=== PATIENT | male | born 1935 | race Caucasian/White ===

== ENCOUNTER 2016-08-26 14:54 | Inpatient (IN) | payer OTHER ==
[2016-08-26 16:56] LABS: HEMOGLOBIN 12.5 gm/dl (14.0-17.5); RED BLOOD COUNT 3.93 M/UL (4.20-5.50); WHITE BLOOD COUNT 10.3 K/UL (4.5-11.0)
[2016-08-26] MEDS ORDERED: SEROQUEL25 MG PO (23:59)
[2016-08-27] MEDS ORDERED: NAMENDA XR28 MG PO
[2016-08-27] MEDS ORDERED: KLONOPIN TAB 00.5 MG PO
[2016-08-30 04:29] LABS: HEMOGLOBIN 11.8 gm/dl (14.0-17.5); RED BLOOD COUNT 3.68 M/UL (4.20-5.50); WHITE BLOOD COUNT 10.4 K/UL (4.5-11.0)
[2016-08-31 07:21] LABS: HEMOGLOBIN 11.4 gm/dl (14.0-17.5); RED BLOOD COUNT 3.62 M/UL (4.20-5.50); WHITE BLOOD COUNT 11.5 K/UL (4.5-11.0)
[2016-09-01 04:42] LABS: HEMOGLOBIN 11.6 gm/dl (14.0-17.5); RED BLOOD COUNT 3.67 M/UL (4.20-5.50); WHITE BLOOD COUNT 12.9 K/UL (4.5-11.0)
[2016-09-02 04:58] LABS: HEMOGLOBIN 11.3 gm/dl (14.0-17.5); RED BLOOD COUNT 3.62 M/UL (4.20-5.50); WHITE BLOOD COUNT 13.2 K/UL (4.5-11.0)
[2016-09-04 07:15] LABS: BUN/CREATININE RATIO 10 (0-10)
[2016-09-05 06:06] LABS: HEMOGLOBIN 9.5 gm/dl (14.0-17.5); RED BLOOD COUNT 3.05 M/UL (4.20-5.50); WHITE BLOOD COUNT 14.7 K/UL (4.5-11.0)
[2016-09-05 06:34] LABS: BUN/CREATININE RATIO 9 (0-10)
[2016-09-06 05:07] LABS: HEMOGLOBIN 9.6 gm/dl (14.0-17.5); RED BLOOD COUNT 3.05 M/UL (4.20-5.50); WHITE BLOOD COUNT 14.4 K/UL (4.5-11.0)
[2016-09-06 05:22] LABS: BUN/CREATININE RATIO 9 (0-10)
[2016-09-07 04:52] LABS: HEMOGLOBIN 9.8 gm/dl (14.0-17.5); RED BLOOD COUNT 3.15 M/UL (4.20-5.50)
[2016-09-07 05:10] LABS: BUN/CREATININE RATIO 11 (0-10)
[2016-09-09] MEDS ORDERED: VITAMIN B-1000 MCG/M IM ×3 (14:49→15:01)
[2016-09-09] MEDS ORDERED: COLACE 100MG C100 MG PO (15:05)
[2016-09-09] MEDS ORDERED: PROSCAR5 MG PO (15:07)
[2016-09-09] MEDS ORDERED: FLOMAX 0.4 MG0.4 MG PO (15:14)
[2016-09-09] MEDS ORDERED: MIRALAX17 GM PO (15:15)
[2016-09-09] MEDS ORDERED: VITAMIN D50000 UNIT PO (15:16)
[2016-09-09] MEDS ORDERED: SYNTHROID25 MCG PO (15:18)
[2016-09-09] MEDS ORDERED: FOLIC ACID 1 MG1 MG PO (15:19)
[2016-09-09] MEDS ORDERED: ELIQUIS5 MG PO ×2 (15:20→15:21)
[2016-09-09] MEDS ORDERED: NAMENDA XR28 MG PO (15:38)
== END 2016-09-09 20:53 | disposition home health service (06) | DRG 683 ==
LOC: ER1 14:54 → MED SURG 4 18:11 → ZEROF 18:11 → MED SURG 4 23:06
PROVIDERS: Emergency Medicine; Hospitalist; Internal Medicine; ADMIT Internal Medicine
DX: N17.9 Acute kidney failure, unspecified (principal); I82.4Z1 Acute embolism and thrombosis of unspecified deep veins of right distal lower extremity; K56.60 Unspecified intestinal obstruction; N30.00 Acute cystitis without hematuria; K56.7 Ileus, unspecified; N40.1 Benign prostatic hyperplasia with lower urinary tract symptoms; N18.3 Chronic kidney disease, stage 3 (moderate); E03.9 Hypothyroidism, unspecified; E55.9 Vitamin D deficiency, unspecified; E53.8 Deficiency of other specified B group vitamins; N28.1 Cyst of kidney, acquired; L89.619 Pressure ulcer of right heel, unspecified stage; Z91.81 History of falling; M19.90 Unspecified osteoarthritis, unspecified site; Z74.01 Bed confinement status; M62.50 Muscle wasting and atrophy, not elsewhere classified, unspecified site; Z51.89 Encounter for other specified aftercare; D50.0 Iron deficiency anemia secondary to blood loss (chronic); G30.9 Alzheimer's disease, unspecified; F02.80 Dementia in other diseases classified elsewhere, unspecified severity, without behavioral disturbance, psychotic disturbance, mood disturbance, and anxiety; M17.11 Unilateral primary osteoarthritis, right knee; M25.461 Effusion, right knee; Z79.899 Other long term (current) drug therapy; R26.0 Ataxic gait
CPT/HCPCS: 36415; 70450; 70551; 71010; 73562; 74000; 74250; 80048; 80053; 81001; 82550; 82553; 82607; 82746; 83735; 83874; 84132; 84439; 84443; 84484; 85025; 85027; 87040; 92526; 92610; 93005; 93971; 96374; 96375; 97110; 97530; 99285; G0378; J0696; J2060; J2270; J2405; J2550; J3420; J7030; J7050; Q9963